=== PATIENT | female | born 1950 | race Caucasian/White ===

== ENCOUNTER 2017-12-24 14:58 | Inpatient (IN) | payer MEDICARE, BC ==
[~2017-12-24] VITALS: Ht 157.4 cm; Wt 86.6 kg
--- NOTE | ~2017-12-24 | CON ---
[place], [place] REPORT OF CONSULTATION NAME: VANESSA RAHMAN UNIT #: [id number] ROOM: 405 DOCTOR: DARRELL ROCHA MDNANCY BIRTHDATE: [birth year] DOS: 12/25/2017 PULMONARY CONSULTATION REASON FOR CONSULTATION: Assess the patient's current symptoms of shortness of breath. HISTORY OF PRESENT ILLNESS: This is a 67-year-old white female patient who has been rather admitted to the hospital ____ noted severe tightness in the chest. The patient's tightness of the chest was noted to be lasted for a short period of time. She was thinking that she may have any increased anxiety. The patient does have a cough with some sputum expectoration, not reported as severe. Denies symptoms of acute chest pain. Denies symptoms of hemoptysis. The patient has been assessed during this hospitalization and underwent a workup for the patient acute pulmonary embolism. This morning, the patient was noted comfortable appearance, sitting on the chair. The patient would like to be discharged home. The daughter was also present in the room. The patient stated she does not have any ongoing acute respiratory symptom at this time. All the symptoms, which has been reported previously was completely resolved. The patient denies any symptoms of wheezing. Denies symptoms of chest trauma. REVIEW OF SYSTEMS: CONSTITUTIONAL SYMPTOMS: Denies symptoms of fatigue, tiredness, fever, chills. EYES: Denies any burning, redness, or tenderness. EAR, NOSE AND THROAT SYMPTOMS: Denies any symptoms of sore throat, hoarseness, otalgia, postnasal drainage. CARDIOVASCULAR: Denies angina pain, edema and pain of the lower extremities. GASTROINTESTINAL: Dysphagia, nausea, vomiting, diarrhea, abdominal pain, hematemesis, melena, or hematochezia. CENTRAL NERVOUS SYSTEM: No dizziness, headache, diplopia, syncopal episodes or seizures. Remaining systems were reviewed. They were noted all negative. PAST MEDICAL HISTORY: 1. Known with history of chronic kidney disease stage 4 for the patient, not on hemodialysis. 2. The patient with chronic nicotine dependence. 3. Type 2 diabetes mellitus. 4. Essential hypertension. 5. Coronary artery disease. 6. Gastroesophageal reflux. 7. History of allergic rhinitis. 8. History of hypothyroidism. 9. Obstructive sleep apnea disorder treated with the CPAP. SOCIAL HISTORY: The patient was noted retirement tobacco use, started at a younger age, , has 2 children, lives at home. FAMILY HISTORY: Reported diabetes and hypertension. [place], [place] REPORT OF CONSULTATION NAME: VANESSA RAHMAN UNIT #: [id number] ROOM: 405 DOCTOR: DARRELL ROCHA MD,NANCY BIRTHDATE: [birth year] HOME MEDICATION: The patient noted as use of aspirin, Bumex, Coreg, Sensipar, Plavix, ferrous sulfate, Flonase, levothyroxine, Protonix, pravastatin, Onglyza, sodium bicarbonate, tramadol and trazodone. DRUG ALLERGIES: REPORTED ALLERGIES TO: 1. SULFA DRUG. 2. VICODIN. 3. CLINDAMYCIN. 4. PERCOCET. 5. TETANUS SHOTS. PHYSICAL EXAMINATION: GENERAL: This is a 67-year-old white female currently noted comfortable sitting on the bed without any acute distress. VITAL SIGNS: Height of 5 feet 2 inches, weight 191 pounds, BMI 34.9. Temperature noted normal, respiratory rate 18-20, heart rate of 92-91, blood pressure 137/67-132/70. The pulse oxygen saturation of the patient noted on room air at rest, 96% saturation on admission and later on as well. GENERAL: Chronic obesity. NECK: Supple. HEENT: Head was atraumatic. Severe decreased posterior pharyngeal space with high tongue base and ____ soft tissue structures. CARDIOVASCULAR: S1, S2 audible. LUNGS: Noted clear to auscultation bilaterally with mild and reduction of breath sounds bilaterally. ABDOMEN: Soft, nontender and obese. EXTREMITIES: Chronic obesity without edema, clubbing, or cyanosis. VISIBLE SKIN: No lesions or rashes. CENTRAL NERVOUS SYSTEM: Cranial nerves 2-12 intact. No focal deficit. MUSCULOSKELETAL: Noted without any acute deformities. LABORATORY DATA: CBC on 12/24/2017, yesterday noted hemoglobin 9, hematocrit 29.8, WBC count normal, platelet count noted completely normal. Lactic acid noted yesterday 1.7 as well on admission. PT/PTT yesterday on admission normal. CMP on admission, BUN 37, creatinine 4.29, glucose 153. The troponin cycle for the patient 3 times for the patient yesterday; this morning were noted normal. CBC this morning, hemoglobin 8.4, WBC count normal, platelet count normal. CMP this morning, BUN 43, creatinine 4.3 and glucose 274. Remaining electrolytes were normal. Chest x-ray one view, which was done for this patient was noted with evidence of cardiomegaly without any acute pulmonary infiltration other abnormalities. The ultrasound of the bilateral lower extremity, the patient was noted to be negative. The V/Q scan, the patient was also performed for the patient 12/24/2017 was noted low probability for pulmonary embolism. IMPRESSION: At this time, the patient would be coming to the hospital with: 1. History of long-term tobacco use. The patient might be noted with possibility of bronchospasm. The patient with COPD and bronchial asthma diagnosed to be considered. There were no significant acute exacerbation noted. Also, the patient has a past known history of coronary artery disease. Cardiac [place], [place] REPORT OF CONSULTATION NAME: VANESSA RAHMAN UNIT #: [id number] ROOM: 405 DOCTOR: NANCY CAMPOS MD BIRTHDATE: [birth year] enzymes for the patient was noted to be normal. 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 2. History of known obstructive sleep apnea disorder treated with the CPAP. PLAN OF TREATMENT: At this time, the patient does not have any ongoing acute pulmonary problem. The patient requires further assessment of the hospitalization. She was advised to be assessed by her last repairer helper for patient after discharge from the hospital for further assessment for the complete workup for the COPD and bronchial asthma assessment. Tobacco cessation has been addressed with the patient described in the risk and benefit for the patient with ongoing tobacco use. Tobacco cessation for future, she does understand the tobacco use. She would not require any antibiotic. The patient was also noted end-stage renal failure stage 4 for the patient and not on hemodialysis at this time. DIAGNOSIS: Pulmonary embolism. The patient has been excluded. The patient does not have any persistent symptom at this time. I would not require any immediate assessment for this current hospitalization. NANCY RAMÍREZ MD CM:CONSTR:REPORT OF CONSULTATION 2123 12/26/17 0756 interface
--- NOTE | ~2017-12-24 | CON ---
[place], [place] REPORT OF CONSULTATION NAME: VANESSA RAHMAN UNIT #: [id number] ROOM: 405 DOCTOR: ELVA MENDEZ MD BIRTHDATE: [birth year] DOS: 12/25/2017 CARDIOLOGY CONSULTATION REASON FOR CONSULTATION: The patient has shortness of breath and chest pain. CLINICAL HISTORY: The patient is a 67-year-old patient with history of hypertension, chronic kidney disease, diabetes, tobacco use, who came to the Emergency Room with shortness of breath. The patient was noted to have shortness of breath in the afternoon while she was at home. There is moderate, constant shortness of breath associated with some left shoulder pain and some tightness in her chest area. Her pain does get worse with deep breaths. Due to her shortness of breath and chest pain, she presented to the Emergency Room and was admitted to the hospital and she was diagnosed with pneumonia and also congestive heart failure and Cardiology was consulted for any further recommendations. Apparently, she was seen by her lockstitch back maker a couple of weeks ago and told that everything is well from the cardiac standpoint and she had what appears to be a pericardiocentesis recently for "fluid around her heart." She denies any fever, chills. No orthopnea or PND. No cough or hemoptysis. No tingling, numbness or weakness. No nausea, vomiting, or diarrhea. No hematuria or dysuria. No musculoskeletal symptoms. She did have a left leg wound and she goes to wound clinic. REVIEW OF SYSTEMS: Review of the 10 systems negative except as mentioned above. PAST MEDICAL HISTORY: 1. Coronary artery disease. 2. History of hypertension. 3. Diabetes. 4. Chronic kidney disease. 5. Non-morbid obesity. 6. Pericardial effusion. 7. Left leg ulcer. 8. Chronic lower extremity edema. SOCIAL HISTORY: The patient does continue to smoke, but denies any alcohol or illicit drug abuse. ALLERGIES: Reviewed. HOME MEDICATIONS: Reviewed. FAMILY HISTORY: Family history of hypertension and diabetes. REVIEW OF THE DIAGNOSTIC TESTS: EKG normal sinus rhythm. Cardiac troponins are negative x 3. Hemoglobin 8.4, platelets 248,000. Potassium 4.3, BUN 43, creatinine 4.3, and magnesium 2.4. ProBNP 5619. PHYSICAL EXAMINATION: VITAL SIGNS: Blood pressure 146/62, pulse 91, respiratory rate 18, weight 86.6 [place], [place] REPORT OF CONSULTATION NAME: VANESSA RAHMAN UNIT #: [id number] ROOM: 405 DOCTOR: VANESSA BARRIGAELVA BIRTHDATE: [birth year] kilos, BMI 35. GENERAL: Alert, comfortable, in no acute distress. HEAD AND NECK: Pupils are round and equal. No jaundice. Tongue was moist and pharynx was clear. Neck supple, no distended neck veins. No carotid bruit. CHEST: Symmetric, nontender. LUNGS: A few scattered rhonchi, diminished at bases. HEART: Regular rhythm, no S3, no palpable thrills. ABDOMEN: Benign, nontender, obese. Bowel sounds normal. EXTREMITIES: Showed right leg 1+ edema, left leg, 2+ edema with dressing to the left foot. SKIN: Warm and dry. NEUROLOGIC: The patient is alert, oriented. No focal neurologic deficit. RECTAL: Deferred. GENITOURINARY: Deferred. DIAGNOSES: 1. Chest pain, atypical, myocardial infarction ruled out. 2. Acute on chronic diastolic heart failure. 3. Coronary artery disease, status post 3 stents in 2010, details unknown. 4. History of pericardial effusion, status post pericardiocentesis. 5. Chronic lower extremity edema. 6. Chronic anemia. 7. Chronic kidney disease. 8. Tobacco smoking. 9. Pneumonia. 10. Hypertension. RECOMMENDATIONS: 1. She denies any chest pain. 2. Continue current medications. 3. Continue her Bumex for her lower extremity edema and chronic diastolic heart failure. 4. She was seen by her lockstitch back maker in [place] about a week ago. 5. She would like to go home today and follow up with her lockstitch back maker. 6. She appears to be stable from the cardiac standpoint and continue current medications. 7. Continue to monitor her heart rates, blood pressures, renal function as well as hemoglobin. 8. The patient was counseled to quit smoking and also counseled for diet, exercise and gradual weight loss. 9. There is no family at bedside at the time of my examination. [place], [place] REPORT OF CONSULTATION NAME: VANESSA RAHMAN UNIT #: [id number] ROOM: 405 DOCTOR: VANESSA BARRIGA,ELVA BIRTHDATE: [birth year] ELVA MENDEZ MD CM:CONSTR:REPORT OF CONSULTATION 53 12/27/172021 interface
--- NOTE | ~2017-12-24 | EKG ---
[place], [place] ELECTROCARDIOGRAM REPORT NAME: VANESSA RAHMAN UNIT #: [id number] ROOM: 405 DOCTOR: MICHELE DRAFT REPORT BIRTHDATE: [birth year] 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
--- NOTE | ~2017-12-24 | EKG ---
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
[2017-12-24 15:00] VITALS: BP 136/63
[2017-12-24 15:30] VITALS: BP 123/67
[2017-12-24] MEDS ORDERED: SODIUM BICARBO650 MG PO (15:40)
[2017-12-24] MEDS ORDERED: BUMETANIDE1 MG PO (15:41)
[2017-12-24] MEDS ORDERED: SENSIPAR30 MG PO (15:41)
[2017-12-24] MEDS ORDERED: FEROSUL325 MG PO (15:41)
[2017-12-24] MEDS ORDERED: ONGLYZA2.5 MG PO (15:42)
[2017-12-24] MEDS ORDERED: PLAVIX75 M1 PO (15:42)
[2017-12-24] MEDS ORDERED: PRAVACHOL80 M1 PO (15:46)
[2017-12-24] MEDS ORDERED: COREG25 MG PO (15:47)
[2017-12-24] MEDS ORDERED: BAYER ASPIRIN C81 MG PO (15:47)
[2017-12-24] MEDS ORDERED: RESTASIS1 EACH OP (15:48)
[2017-12-24] MEDS ORDERED: TRAZODONE50 MG PO (15:49)
[2017-12-24] MEDS ORDERED: PANTOPRAZOLE SO40 MG PO (15:50)
[2017-12-24 15:51] LABS: BASO % 0.4 % (0.0-1.0); EOS # 0.1 10*3/uL (0.0-0.4); EOS % 1.8 % (1.0-4.0); HEMATOCRIT 29.8 % (37.0-47.0); LYMPH # 0.9 10*3/uL (1.3-4.4); LYMPH % 11.8 % (27.0-41.0); MEAN CELL VOLUME 89.8 fl (81.0-99.0); MEAN CORPUSCULAR HGB 27.1 pg (27.0-31.0); MEAN CORPUSCULAR HGB CONC 30.2 g/dl (33.0-37.0); MEAN PLATELET VOLUME 9.8 fl (9.6-12.3); MONO # 0.5 10*3/uL (0.1-1.0); MONO % 6.8 % (3.0-9.0); NEUT # 6.1 10*3/uL (2.3-7.9); NEUT % 78.6 % (47.0-73.0); PLATELET COUNT AUTOMATED 253 10*3/uL (130-400); RED BLOOD COUNT 3.32 10*6/uL (4.10-5.10); RED CELL DISTRI WIDTH 18.1 % (0-14.5); WHITE BLOOD COUNT 7.8 10*3/uL (4.8-10.8)
[2017-12-24] MEDS ORDERED: ULTRAM50 MG PO (15:52)
[2017-12-24] MEDS ORDERED: FLUTICASONE P15.8 ML NAS (15:52)
[2017-12-24] MEDS ORDERED: LIDOCAINE15 GM T (15:54)
[2017-12-24] MEDS ORDERED: PAIN & FEVER R500 M1 PO (15:56)
[2017-12-24 16:00] LABS: ACT PARTIAL THROMBO TIME 22.2 SECONDS (20.8-31.5)
[2017-12-24 16:06] LABS: ALBUMIN 2.9 gm/dl (3.1-4.5); ALKALINE PHOSPHATASE 76 U/L (45-117); BUN 37 mg/dl (7-24); CHLORIDE 110 mmol/L (98-107); CREATININE 4.29 mg/dL (0.55-1.02); LIPASE 471 U/L (73-393); POTASSIUM 4.6 mmol/L (3.5-5.1); SGOT/AST 10 IU/L (3-35); SGPT/ALT 10 U/L (12-78); SODIUM 140 mmol/L (136-145)
[2017-12-24 16:07] LABS: TROPONIN I < 0.015 ng/ml (<0.045)
[2017-12-24 17:00] VITALS: BP 128/72
[2017-12-24 18:00] VITALS: BP 126/70
[2017-12-24 20:00] VITALS: BP 137/67
[2017-12-24 20:20] VITALS: BP 137/67
[2017-12-24] MEDS ORDERED: LEVOTHYROXINE150 MCG PO (22:44)
[2017-12-25] VITALS: BP 125/64
[2017-12-25 06:44] LABS: BASO % 0.1 % (0.0-1.0); HEMATOCRIT 27.9 % (37.0-47.0); HEMOGLOBIN 8.4 g/dl (12.0-16.0); LYMPH # 0.6 10*3/uL (1.3-4.4); LYMPH % 8.7 % (27.0-41.0); MEAN CELL VOLUME 88.9 fl (81.0-99.0); MEAN CORPUSCULAR HGB 26.8 pg (27.0-31.0); MEAN CORPUSCULAR HGB CONC 30.1 g/dl (33.0-37.0); MEAN PLATELET VOLUME 10.6 fl (9.6-12.3); MONO # 0.3 10*3/uL (0.1-1.0); MONO % 3.6 % (3.0-9.0); NEUT # 6.1 10*3/uL (2.3-7.9); PLATELET COUNT AUTOMATED 248 10*3/uL (130-400); RED BLOOD COUNT 3.14 10*6/uL (4.10-5.10); RED CELL DISTRI WIDTH 18.2 % (0-14.5)
[2017-12-25 07:25] LABS: ALBUMIN 2.6 gm/dl (3.1-4.5); CREATININE 4.3 mg/dL (0.55-1.02); PHOSPHOROUS 3.8 mg/dL (2.5-4.9); POTASSIUM 4.3 mmol/L (3.5-5.1); TOTAL PROTEIN 6.8 gm/dL (6.4-8.2)
[2017-12-25 08:00] VITALS: BP 146/62
[2017-12-25 12:00] VITALS: BP 132/70
[2017-12-25 16:00] VITALS: BP 139/67
[2017-12-25] MEDS ORDERED: LEVAQUIN750 M1 PO (17:25)
[2017-12-25] MEDS ORDERED: PREDNISONE10 MG PO (17:25)
[2017-12-25] MEDS ORDERED: MUCINEX1200 M1 PO (17:25)
== END 2017-12-25 18:15 | disposition home or self-care (01) | DRG 291 ==
LOC: ED 14:58 → EDHOLD 16:24 → 4E 16:24
PROVIDERS: Emergency Medicine; Internal Medicine
DX: I13.2 Hypertensive heart and chronic kidney disease with heart failure and with stage 5 chronic kidney disease, or end stage renal disease (principal); J18.9 Pneumonia, unspecified organism; E11.22 Type 2 diabetes mellitus with diabetic chronic kidney disease; E11.65 Type 2 diabetes mellitus with hyperglycemia; N18.6 End stage renal disease; I50.33 Acute on chronic diastolic (congestive) heart failure; I45.2 Bifascicular block; J44.0 Chronic obstructive pulmonary disease with (acute) lower respiratory infection; F17.210 Nicotine dependence, cigarettes, uncomplicated; I25.10 Atherosclerotic heart disease of native coronary artery without angina pectoris; D64.9 Anemia, unspecified; E83.41 Hypermagnesemia; R79.89 Other specified abnormal findings of blood chemistry; E03.9 Hypothyroidism, unspecified; G47.33 Obstructive sleep apnea (adult) (pediatric); J30.9 Allergic rhinitis, unspecified; K21.9 Gastro-esophageal reflux disease without esophagitis; E78.5 Hyperlipidemia, unspecified; Z87.01 Personal history of pneumonia (recurrent); I25.2 Old myocardial infarction; Z88.2 Allergy status to sulfonamides; Z88.6 Allergy status to analgesic agent; Z88.1 Allergy status to other antibiotic agents; Z88.7 Allergy status to serum and vaccine; Z88.8 Allergy status to other drugs, medicaments and biological substances; Z91.048 Other nonmedicinal substance allergy status; Z79.82 Long term (current) use of aspirin; Z82.49 Family history of ischemic heart disease and other diseases of the circulatory system; Z83.3 Family history of diabetes mellitus; Z71.6 Tobacco abuse counseling